=== PATIENT | female | born 1985 | race Two or more races ===

== ENCOUNTER 2025-05-13 08:58 | Outpatient (CLI) | payer BC ==
[2025-05-13 09:23] LABS: Hematocrit 38.3 % (36.0-46.0); Hemoglobin 12.8 g/dL (12.2-16.2); Mean Corpuscular Hemoglobin 30.5 pg (28.0-32.0); Mean Corpuscular Volume 90.9 fL (80.0-100.0); Nucleated Red Blood Cells % 0.0 %
[2025-05-13 09:35] LABS: INR 0.98 (0.9-1.15); Partial Thromboplastin Time 27.3 SEC (24.5-34.5); Prothrombin Time 10.4 sec (9.3-11.8)
[2025-05-13 09:47] LABS: Alanine Aminotransferase 21 U/L (7-40); Albumin 4.3 g/dL (3.2-4.8); Anion Gap 8 (5-15); BUN/Creatinine Ratio 17.9 (10.0-20.0); Blood Urea Nitrogen 15 mg/dL (9-23); Calcium 9.0 mg/dL (8.7-10.4); Carbon Dioxide 25 mmol/L (20-31); Glucose 90 mg/dL (74-106); Potassium 4.4 mmol/L (3.5-5.1); Sodium 141 mmol/L (136-145); Total Protein 7.0 g/dL (5.7-8.2)
[2025-05-13 09:48] LABS: Bilirubin, Total 0.8 mg/dL (0.2-1.0)
[2025-05-13 09:49] LABS: Alkaline Phosphatase 43 U/L (46-116); Chloride 108 mmol/L (98-107)
[2025-05-13 10:27] LABS: Iron 67.0 ug/dL (50-170)
[2025-05-13 10:30] LABS: Total Iron Binding Capacity 269.0 ug/dL (250-425)
== END 2025-05-13 17:00 | disposition home or self-care (01) ==
LOC: LAB 08:58
DX: L98.7 Excessive and redundant skin and subcutaneous tissue (principal); E65 Localized adiposity
CPT/HCPCS: 36415; 80053; 83036; 83540; 83550; 84443; 85025; 85610; 85730